=== PATIENT | male | born 1980 | race Caucasian/White ===

== ENCOUNTER 2019-12-21 13:48 | Emergency (ER) | payer OTHER ==
[2019-12-21 14:15] VITALS: BP 134/83; PULSE 98
[2019-12-21] MEDS ORDERED: Bacitracin Oint 1 GM U/D Packet TOP ONE (14:30)
--- NOTE | 2019-12-21 14:34 | EDM.PDOC ---
ED HPI GENERAL MEDICAL PROBLEM - General Chief Complaint: Laceration Stated Complaint: CUT WRIST AT WORK Time Seen by Provider: 12/21/19 14:31 Source of Information: Reports: Patient History Limitations: Reports: No Limitations - History of Present Illness INITIAL COMMENTS - FREE TEXT/NARRATIVE: 39-year-old male with no significant health problems presents to the emergency department with a laceration on the left palm sustained at work today. He is a cook at a restaurant, [employer] in [place]. He is not on anticoagulants and has no bleeding disorders. His last tetanus booster was in 2014. - Related Data Allergies Allergy/AdvReac Type Severity Reaction Status Date / Time *seafood Allergy Severe Anaphylactic Uncoded 12/21/19 14:03 Shock succinylcholine Allergy Severe Anaphylactic Uncoded 12/21/19 14:03 Shock Home Meds: Home Meds Dextroamphetamine/Amphetamine [Dextroamp-Amphet ER] 40 mg PO DAILY 10/19/15 [History] EPINEPHrine [Epipen 2-Jered] 1 dose IM ASDIRECTED PRN 10/19/15 [History] Naratriptan HCl [Naratriptan] 1 tab PO Q24H PRN 10/19/15 [History] Past Medical History - Past Health History Medical/Surgical History: Denies Medical/Surgical History Neurological History: Reports: Other (See Below) Other Neuro History: Headaches Endocrine/Metabolic History: Reports: Other (See Below) Other Endocrine/Metabolic History: Epilepsy - Past Surgical History Musculoskeletal Surgical History: Reports: Amputation Other Musculoskeletal Surgeries/Procedures:: right thumb Social & Family History - Tobacco Use Smoking Status *Q: Never Smoker - Caffeine Use Caffeine Use: Reports: Soda - Recreational Drug Use Recreational Drug Use: No ED ROS GENERAL - Review of Systems Review Of Systems: See Below Constitutional: Reports: No Symptoms Musculoskeletal: Reports: Other (No tendon involvement.) Skin: Reports: Other (Laceration on the palm of the left hand.) Neurological: Reports: Other (No numbness or weakness.) ED EXAM, SKIN/RASH Exam: See Below Exam Limited By: No Limitations General Appearance: Alert, WD/WN, No Apparent Distress Skin: Other (There is a 2 cm curvilinear laceration of the palm left hand. It is superficial. Neurovascular exam is normal. Is no tendon involvement.) ED SKIN PROCEDURES - Laceration/Wound Repair Left Hand Appearance: Superficial Distal NVT: Neuro & Vascular Intact, No Tendon Injury Anesthetic Type: Local Local Anesthesia - Lidocaine (Xylocaine): 1% Plain Local Anesthetic Volume: 2cc Skin Prep: Chlorhexidine (Hibiciens) Exploration/Debridement/Repair: Wound Explored Closed with: Sutures Lac/Wound length In cm: 2 Suture Size: 4-0 # of Sutures: 3 Suture Type: Nylon Sterile Dressing Applied: Nurse Tetanus Status Addressed: Yes Complications: No Course - Vital Signs Text/Narrative:: He has a superficial laceration of the palm of the left hand. Wound was repaired with sutures. Tetanus is up-to-date. Dressing was applied. Patient will remove his sutures and 7-10 days. He will follow-up with his primary care provider as needed. Last Recorded V/S: Last Vital Signs Temp 35.7 C L 12/21/19 14:15 Pulse 98 12/21/19 14:15 Resp 14 12/21/19 14:15 BP 134/83 12/21/19 14:15 Pulse Ox 98 12/21/19 14:15 - Orders/Labs/Meds Meds: Medications Discontinued Medications Generic Name Dose Route Start Last Admin Trade Name Jorge Albertoq PRN Reason Stop Dose Admin Bacitracin 1 dose 12/21/19 14:30 12/21/19 14:36 Bacitracin Oint 1 Gm TOP 12/21/19 14:31 1 dose ONETIME ONE Administration Bacitracin 0.25 gm 12/21/19 21:00 Bacitracin Oint TOP TID [facility] Heparin Sodium (Porcine) 5,200 units 12/21/19 14:44 Heparin Sodium IVPUSH 12/21/19 14:45 .BOLUS ONE Protocol Heparin Sodium/Dextrose 25,000 units in 500 mls @ 1,377.2 mls/hr 12/21/19 15:00 Heparin 25,000 Units In D5w 500 Ml IV TITRATE [facility] Protocol 1,100 UNITS/KG/HR Lidocaine HCl 5 ml 12/21/19 14:29 12/21/19 14:36 Xylocaine-Mpf 1% INJECT 12/21/19 14:30 5 ml ONETIME ONE Administration Departure - Departure Time of Disposition: 15:28 Disposition: DC/Tfer W/I Hosp To Swing 61 Condition: Good Clinical Impression: Laceration - Discharge Information *PRESCRIPTION DRUG MONITORING PROGRAM REVIEWED*: No *COPY OF PRESCRIPTION DRUG MONITORING REPORT IN PATIENT ANNAMARIA: No Instructions: Laceration Care, Adult, [id number] Referrals: Emiliano Hanks MD [Primary Care Provider] - Forms: ED Department Discharge Additional Instructions: Keep the wound clean and covered with antibiotic ointment. Remove sutures in 7- 10 days. Sepsis Event Note (ED) - Evaluation Sepsis Screening Result: No Definite Risk - Focused Exam Vital Signs: Vital Signs Temp Pulse Resp BP Pulse Ox 12/21/19 14:15 35.7 C L 98 14 134/83 98 12/21/19 14:13 35.7 C L 98 14 134/83 98
[2019-12-21] MEDS ORDERED: Heparin Sodium 5,000 Units/ML Vial IVPUSH ONE (14:44)
[2019-12-21] MEDS ORDERED: Heparin Sodium/D5W 25,000 UNITS/500 ML BAG IV SCH (15:00)
[2019-12-21] MEDS ORDERED: Bacitracin Oint 28.35 GM Tube TOP SCH (21:00)
== END 2019-12-21 15:42 | disposition home or self-care (01) ==
LOC: JP.ED 13:48
DX: S61.412A Laceration without foreign body of left hand, initial encounter (principal); G40.909 Epilepsy, unspecified, not intractable, without status epilepticus; Z88.4 Allergy status to anesthetic agent; Z91.013 Allergy to seafood; Z79.899 Other long term (current) drug therapy; W26.8XXA Contact with other sharp object(s), not elsewhere classified, initial encounter; Y99.0 Civilian activity done for income or pay
CPT/HCPCS: 12001; 99282; J2001

== ENCOUNTER 2020-09-23 13:14 | Emergency (ER) | payer OTHER ==
--- NOTE | 2020-09-23 14:31 | EDM.PDOC ---
ED HPI GENERAL MEDICAL PROBLEM - General Chief Complaint: Neurological Problem Stated Complaint: MEDICAL VIA [place] Time Seen by Provider: 09/23/20 14:28 Source of Information: Reports: Patient, Family History Limitations: Reports: No Limitations - History of Present Illness INITIAL COMMENTS - FREE TEXT/NARRATIVE: pt had a seizure at work today that lasted for about 4 minutes. He is on no meds but he does have a known history of a seizure disorder. He had his last seizure about 6 monthes ago. Onset: Today, Sudden Duration: Minutes: Location: Reports: Generalized Associated Symptoms: Reports: No Other Symptoms - Related Data Allergies Allergy/AdvReac Type Severity Reaction Status Date / Time levetiracetam [From Keppra] Allergy Severe Other Verified 09/23/20 13:26 shellfish derived Allergy Severe Anaphylactic Verified 09/23/20 13:18 Shock succinylcholine Allergy Severe Anaphylactic Verified 09/23/20 13:18 Shock Home Meds: Home Meds Dextroamphetamine/Amphetamine [Dextroamp-Amphet ER] 40 mg PO DAILY 10/19/15 [History] EPINEPHrine [Epipen 2-Jered] 1 dose IM ASDIRECTED PRN 10/19/15 [History] Naratriptan HCl [Naratriptan] 1 tab PO Q24H PRN 10/19/15 [History] Past Medical History - Past Health History Medical/Surgical History: Denies Medical/Surgical History HEENT History: Reports: Impaired Vision Musculoskeletal History: Reports: None Neurological History: Reports: Other (See Below) Other Neuro History: Headaches Psychiatric History: Reports: Anxiety Endocrine/Metabolic History: Reports: Other (See Below) Other Endocrine/Metabolic History: Epilepsy - Infectious Disease History Infectious Disease History: Reports: Chicken Pox - Past Surgical History Head Surgeries/Procedures: Reports: None HEENT Surgical History: Reports: None Endocrine Surgical History: Reports: None Neurological Surgical History: Reports: None Musculoskeletal Surgical History: Reports: Amputation Other Musculoskeletal Surgeries/Procedures:: right thumb Dermatological Surgical History: Reports: None Social & Family History - Tobacco Use Tobacco Use Status *Q: Never Tobacco User Second Hand Smoke Exposure: No - Caffeine Use Caffeine Use: Reports: Soda - Recreational Drug Use Recreational Drug Use: No ED ROS GENERAL - Review of Systems Review Of Systems: See Below Constitutional: Reports: No Symptoms HEENT: Reports: No Symptoms Respiratory: Reports: No Symptoms Cardiovascular: Reports: No Symptoms Endocrine: Reports: No Symptoms GI/Abdominal: Reports: No Symptoms : Reports: No Symptoms Musculoskeletal: Reports: No Symptoms Skin: Reports: No Symptoms Neurological: Reports: Seizure Psychiatric: Reports: Anxiety ED EXAM, NEURO - Physical Exam Exam: See Below Text/Narrative:: pt had a 4 min seizure at work today. He states work is very busy and stressful He has not been ill. He has a known seizure disorder but he is on no meds. He had alot of side effects from his seizure meds. Exam Limited By: No Limitations General Appearance: Alert, No Apparent Distress, Anxious, Other (pt was feeling back to normal. ) Ears: Normal TMs Nose: Normal Inspection Throat/Mouth: Normal Inspection Head Exam: Atraumatic Neck: Normal Inspection Respiratory/Chest: No Respiratory Distress Cardiovascular: Regular Rate, Rhythm GI/Abdominal: Soft, Non-Tender (Male) Exam: Deferred Rectal (Males) Exam: Deferred Neurological: Alert, Oriented x 3 Back Exam: Normal Inspection Extremities: Normal Inspection Psychiatric: Anxious Course - Vital Signs Last Recorded V/S: Last Vital Signs Temp 36.6 C 09/23/20 13:19 Pulse 67 09/23/20 14:30 Resp 12 09/23/20 14:30 BP 111/70 09/23/20 14:30 Pulse Ox 97 09/23/20 14:30 - Orders/Labs/Meds Labs: Laboratory Tests 09/23/20 09/23/20 09/23/20 Range/Units 14:35 14:35 15:02 WBC 5.7 (4.5-11.0) K/uL RBC 4.89 (4.30-5.90) M/uL Hgb 14.2 (12.0-15.0) g/dL Hct 42.3 (40.0-54.0) % MCV 87 (80-98) fL MCH 29 (27-31) pg MCHC 34 (32-36) % Plt Count 262 (150-400) K/uL Neut % (Auto) 64.4 (36-66) % Lymph % (Auto) 22.8 L (24-44) % [place] % (Auto) 6.4 H (2-6) % Eos % (Auto) 5.4 H (2-4) % Baso % (Auto) 1.0 (0-1) % Sodium 141 (140-148) mmol/L Potassium 3.7 (3.6-5.2) mmol/L Chloride 105 (100-108) mmol/L Carbon Dioxide 24 (21-32) mmol/L Anion Gap 11.7 (5.0-14.0) mmol/L BUN 17 (7-18) mg/dL Creatinine 1.0 (0.8-1.3) mg/dL Est Cr Clr Drug Dosing 89.96 mL/min Estimated GFR (MDRD) > 60 (>60) Glucose 98 (74-106) mg/dL Calcium 8.6 (8.5-10.1) mg/dL Total Bilirubin 0.4 (0.2-1.0) mg/dL AST 22 (15-37) U/L ALT 27 (12-78) U/L Alkaline Phosphatase 105 (46-116) U/L Total Protein 7.2 (6.4-8.2) g/dL Albumin 3.7 (3.4-5.0) g/dL Globulin 3.5 (2.3-3.5) g/dL Albumin/Globulin Ratio 1.1 L (1.2-2.2) Urine Color Yellow (YELLOW) Urine Appearance Clear (CLEAR) Urine pH 5.5 (5.0-8.0) Ur Specific [place] 1.020 (1.008-1.030) Urine Protein Negative (NEGATIVE) mg/dL Urine Glucose (UA) Negative (NEGATIVE) mg/dL Urine Ketones Negative (NEGATIVE) mg/dL Urine Occult Blood Negative (NEGATIVE) Urine Nitrite Negative (NEGATIVE) Urine Bilirubin Negative (NEGATIVE) Urine Urobilinogen 0.2 (0.2-1.0) EU/dL Ur Leukocyte Esterase Negative (NEGATIVE) Urine RBC Not seen (0-5) Urine WBC Not seen (0-5) Ur Epithelial Cells Not seen Amorphous Sediment Rare Urine Bacteria Not seen Urine Mucus Not seen - Re-Assessments/Exams Free Text/Narrative Re-Assessment/Exam: 09/23/20 16:11 pt had normal labs. A cat scan of the head was not obtained since had a known history of a seizure disorder and he cleared and appeared normal. Departure - Departure Time of Disposition: 16:12 Disposition: Home, Self-Care 01 Condition: Fair Clinical Impression: Seizure disorder - Discharge Information Instructions: Epilepsy, [id number], Seizure, Adult, [id number] Referrals: PCP,None [Primary Care Provider] - Forms: ED Department Discharge Care Plan Goals: push fluids rtc if he should have further seizures today keep appt with Dr Hanks. Consider seeing a neurologist. send a copy of his labs for Dr Hanks.
[2020-09-23 14:40] VITALS: BP 111/70; PULSE 67
== END 2020-09-23 16:25 | disposition home or self-care (01) ==
LOC: JP.ED 13:14
DX: G40.909 Epilepsy, unspecified, not intractable, without status epilepticus (principal); Z88.8 Allergy status to other drugs, medicaments and biological substances
CPT/HCPCS: 36415; 80053; 81001; 85025; 99283; 99284

== ENCOUNTER 2021-06-21 16:23 | Emergency (ER) | payer OTHER ==
[2021-06-21] MEDS ORDERED: Sodium Chloride 0.9% 75 ML IV SCH (17:45)
[2021-06-21] MEDS ORDERED: Iopamidol 755 Mg/ML 100 ML Bottle IV SCH (17:45)
[2021-06-21 18:25] VITALS: BP 135/85; PULSE 97
== END 2021-06-21 19:43 | disposition home or self-care (01) ==
LOC: JP.ED 16:23
DX: R20.8 Other disturbances of skin sensation (principal); F41.9 Anxiety disorder, unspecified; F32.A Depression, unspecified; Z79.899 Other long term (current) drug therapy; Z91.013 Allergy to seafood; Z88.8 Allergy status to other drugs, medicaments and biological substances
CPT/HCPCS: 36415; 75635; 80048; 85025; 99282; 99284-25; J3490; Q9967

== ENCOUNTER 2021-07-11 06:39 | Emergency (ER) | payer OTHER ==
[~2021-07-11 06:39] MED LIST: Sodium Chloride 0.9% 10 ML SDV IV ONE; propofoL 100 ML ONE
[2021-07-11] MEDS ORDERED: Norepinephrine Bit/D5W Premix 250 ML ONE (06:49)
[2021-07-11] MEDS ORDERED: Norepinephrine Bit/D5W Premix 4 MG in Premix Bag 1 BAG IV SCH (07:00)
[2021-07-11] MEDS ORDERED: Sodium Bicarbonate 8.4% 50 MEQ/50 ML Syringe IVPUSH ONE (07:15)
[2021-07-11] MEDS ORDERED: Heparin Sodium 5,000 Units/ML Vial IVPUSH ONE ×2 (07:16→07:23)
[2021-07-11] MEDS ORDERED: Heparin Sodium 5,000 Units/ML Vial ONE (07:20)
[2021-07-11 07:25] LABS: TROPONIN I HIGH SENSITIVITY 140.8 pg/mL (<=60.3)
[2021-07-11] MEDS ORDERED: propofoL 100 ML IV SCH (07:30)
[2021-07-11] MEDS ORDERED: Vasopressin 100 UNITS in Dextrose 5% in Water 250 ML IV SCH ×2 (07:30)
[2021-07-11] MEDS ORDERED: Heparin Sodium/D5W 25,000 UNITS/500 ML BAG IV SCH (07:30)
[2021-07-11 07:33] LABS: CORONAVIRUS COVID-19 NAA NEGATIVE (NEGATIVE)
[2021-07-11] MEDS ORDERED: Dextrose 5% in Water 250 ML ONE (07:37)
[2021-07-11] MEDS ORDERED: EPINEPHrine 1 MG in Sodium Chloride 0.9% 100 ML IV SCH (07:40)
[2021-07-11] MEDS ORDERED: EPINEPHrine 1 MG/ML 30 ML MDV IVPUSH ONE (07:43)
[2021-07-11] MEDS ORDERED: fentaNYL 100 MCG/2 ML SDV IVPUSH ONE (07:59)
[2021-07-11] MEDS ORDERED: VASOPRESSIN IV SCH ×2 (08:00)
[2021-07-11] MEDS ORDERED: DEXTROSE 5% IV SCH ×2 (08:00)
[2021-07-11] MEDS ORDERED: WATER IV SCH ×2 (08:00)
[2021-07-11 08:47] VITALS: BP 121/118; PULSE 104
[2021-07-11] MEDS ORDERED: Sodium Chloride 0.9% 1,000 ML IV SCH (10:00)
[2021-07-11] MEDS ORDERED: Lactated Ringers 1,000 ML IV SCH (10:00)
== END 2021-07-11 08:45 ==
LOC: JP.ED 06:39
DX: I46.9 Cardiac arrest, cause unspecified (principal); I26.02 Saddle embolus of pulmonary artery with acute cor pulmonale; Z79.899 Other long term (current) drug therapy; Z88.8 Allergy status to other drugs, medicaments and biological substances; Z91.013 Allergy to seafood; Z88.4 Allergy status to anesthetic agent; Z20.822 Contact with and (suspected) exposure to COVID-19
CPT/HCPCS: 0241U; 31500; 36415; 51702; 71045; 71045-26; 80053; 81001; 82803; 83605; 84484; 85025; 85379; 85610; 85730; 92950; 96365; 96367; 96368; 96375; 96376; 99285-25; 99291; 99292; J0171; J1644; J2704; J2997; J3010; J3490; J7030; J7060; J7120

== ENCOUNTER 2023-04-04 19:32 | Emergency (ER) | payer OTHER ==
[2023-04-04 20:00] LABS: BASOPHILS ABSOLUTE AUTO 0.04 K/uL (0.00-0.10); BASOPHILS PERCENT AUTO 0.4 % (0.1-1.3); EOSINOPHILS ABSOLUTE AUTO 0.07 K/uL (0.00-0.40); EOSINOPHILS PERCENT AUTO 0.7 % (0.0-5.4); HEMATOCRIT 42.9 % (38.4-49.7); HEMOGLOBIN 14.5 g/dL (12.9-16.9); IMMATURE GRAN ABSOLUTE AUTO 0.04 K/uL (0.00-0.23); IMMATURE GRAN PERCENT AUTO 0.4 % (0.0-0.7); LYMPHOCYTES ABSOLUTE AUTO 1.69 K/uL (0.8-3.3); LYMPHOCYTES PERCENT AUTO 15.9 % (11.4-47.7); MEAN CORPUSCULAR HEMOGLOBIN 29.5 pg (31.6-35.5); MEAN CORPUSCULAR HGB CONC 33.8 g/dL (31.6-35.5); MEAN CORPUSCULAR VOLUME 87.4 fL (81.4-99.0); MONOCYTES PERCENT AUTO 6.6 % (3.3-12.6); NEUTROPHILS ABSOLUTE AUTO 8.12 K/uL (1.0-7.6); PLATELET COUNT,PLT 279 K/uL (130-375); RED BLOOD CELL COUNT 4.91 M/uL (4.14-5.76); WHITE BLOOD CELL COUNT,WBC 10.7 K/uL (3.2-11.0)
[2023-04-04] MEDS ORDERED: HYDROmorphone 0.5 MG/0.5 ML Syringe IVPUSH ONE ×2 (20:19→21:10)
[2023-04-04] MEDS ORDERED: Naloxone 0.4 MG/ML SDV IVPUSH PRN (20:19)
[2023-04-04 20:21] LABS: A/G RATIO 0.8 (1.2-2.2); ALANINE AMINOTRANSFERASE,ALT 19 U/L (12-78); ALBUMIN 3.4 g/dL (3.4-5.0); ALKALINE PHOSPHATASE 89 U/L (46-116); ANION GAP 14.8 mmol/L (5.0-14.0); ASPARTATE AMNIOTRANSFERASE,AST 15 U/L (15-37); BILIRUBIN TOTAL 0.4 mg/dL (0.2-1.0); BLOOD UREA NITROGEN,BUN 18 mg/dL (7-18); C-REACTIVE PROTEIN 2.59 mg/dL (<0.50); CALCIUM 8.3 mg/dL (8.5-10.1); CARBON DIOXIDE,CO2 27 mmol/L (21-32); CHLORIDE,CL 101 mmol/L (100-108); CREATININE 1.2 mg/dL (0.8-1.3); EST CRCL DRUG DOSING (CG) 79.17 mL/min; ESTIMATED GFR 78 mL/min (>60); GLUCOSE RANDOM 103 mg/dL (74-106); POTASSIUM,K 3.8 mmol/L (3.6-5.2); PROTEIN TOTAL,TP 7.7 g/dL (6.4-8.2); SODIUM,NA 139 mmol/L (140-148)
[2023-04-04] MEDS ORDERED: Sodium Chloride 0.9% 50 ML IV SCH (21:15)
[2023-04-04] MEDS ORDERED: Iopamidol 612 MG/ML 100 ML Bottle IV SCH (21:15)
[2023-04-04] MEDS ORDERED: Ondansetron 4 MG/2 ML SDV IVPUSH ONE (21:19)
[2023-04-04] MEDS ORDERED: Sodium Chloride 0.9% 1,000 ML IV ONE (21:24)
[2023-04-04 22:23] VITALS: BP 86/50; PULSE 92
[2023-04-04] MEDS ORDERED: Sodium Chloride 0.9% 500 ML IV ONE (23:02)
[2023-04-04] MEDS ORDERED: Ketorolac 30 MG/ML SDV IVPUSH ONE (23:48)
== END 2023-04-05 01:25 | disposition home or self-care (01) ==
LOC: JP.ED 19:32
DX: R10.31 Right lower quadrant pain (principal); J18.9 Pneumonia, unspecified organism; Z90.49 Acquired absence of other specified parts of digestive tract; Z79.899 Other long term (current) drug therapy; Z91.013 Allergy to seafood; Z88.8 Allergy status to other drugs, medicaments and biological substances; Z88.4 Allergy status to anesthetic agent
CPT/HCPCS: 36415; 71045; 74177; 80053; 83605; 85025; 86140; 96361; 96374; 96375; 96376; 99284; J1170; J1885; J2405; J3490; J7030; J7040; Q9967